=== PATIENT | female | born 1955 | race Caucasian/White ===

== ENCOUNTER 2017-10-25 08:38 | Day surgery (SDC) | payer OTHER ==
[~2017-10-25] VITALS: Ht 177.8 cm; Wt 96.6 kg
[~2017-10-25 08:38] MED LIST: BIOTIN; BUPIVACAINE/PF 0.5% ONE; CEFAZOLIN 1,000 MG ONE; CEPH-368 PO; CITA10TA4 PO; DEXAMETHASONE 4 MG/ML, 1ML ONE; DICY10CA3 PO; EPINEPHRINE 1 MG/ML, 1ML ONE; ESCI10TA10 PO; GLUCOSAMINE; HORMONE; LACT1CAP37 PO; MULT-230 PO; MULT-326 PO; ONDANSETRON 2MG/ML, 2ML ONE; PROPOFOL 10 MG/ML, 20ML ONE; SUCCINYLCHOLINE 20 MG/ML, 10ML ONE
[2017-10-25] MEDS ORDERED: LACTATED RINGERS 1,000 ML IV SCH (09:26)
[2017-10-25 09:27] VITALS: BP 124/82
[2017-10-25] MEDS ORDERED: RANI150T23 PO (09:29)
[2017-10-25] MEDS ORDERED: MIDAZOLAM 1 MG/ML, 2ML ONE (09:32)
[2017-10-25] MEDS ORDERED: FENTANYL PF 250 MCG/5ML ONE (09:32)
[2017-10-25] MEDS ORDERED: GABAPENTIN 300 MG CAPSULE ONE ×3 (09:45→09:48)
[2017-10-25] MEDS ORDERED: ACETAMINOPHEN 500 MG TABLET ONE ×2 (09:45→09:48)
[2017-10-25] MEDS ORDERED: ONDANSETRON 2MG/ML, 2ML ONE (10:00)
[2017-10-25] MEDS ORDERED: PROPOFOL 10 MG/ML, 20ML ONE (10:00)
[2017-10-25] MEDS ORDERED: ROCURONIUM 10 MG/ML,10ML ONE (10:00)
[2017-10-25] MEDS ORDERED: GLYCOPYRROLATE 0.2MG/1ML, 5ML ONE (10:00)
[2017-10-25] MEDS ORDERED: NEOSTIGMINE 1 MG/ML, 10ML ONE (10:00)
[2017-10-25] MEDS ORDERED: CEFAZOLIN 1,000 MG ONE (10:00)
[2017-10-25] MEDS ORDERED: DEXAMETHASONE 4 MG/ML, 1ML ONE (10:00)
[2017-10-25] MEDS ORDERED: hydrALAzine 20 MG/ML, 1ML IV PRN (10:30)
[2017-10-25] MEDS ORDERED: HYDROmorphone 1 MG/ML, 1ML IV PRN (10:30)
[2017-10-25] MEDS ORDERED: MEPERIDINE/PF 25MG/0.5ML IVPush PRN (10:30)
[2017-10-25] MEDS ORDERED: PROMETHAZINE 25 MG/ML, 1ML IV PRN (10:30)
[2017-10-25] MEDS ORDERED: FENTANYL PF 100 MCG/2ML IV PRN (10:30)
[2017-10-25] MEDS ORDERED: OXYcodone 5 MG/5 ML ORAL.SOL UDC PO PRN (10:30)
[2017-10-25] MEDS ORDERED: LABETALOL 5MG/ML, 20ML IV PRN (10:30)
[2017-10-25] MEDS ORDERED: LORazepam 2 MG/ML, 1ML IVPush PRN (10:30)
[2017-10-25] MEDS ORDERED: ALBUTEROL SULFATE 2.5 MG/3 ML NPPB PRN (10:30)
== END 2017-10-25 13:05 | disposition home or self-care (01) ==
LOC: OUT 08:38
PROVIDERS: ATTEND Surgery
DX: K80.10 Calculus of gallbladder with chronic cholecystitis without obstruction (principal); F41.9 Anxiety disorder, unspecified; F17.200 Nicotine dependence, unspecified, uncomplicated; Z90.710 Acquired absence of both cervix and uterus; Z98.890 Other specified postprocedural states; Z79.899 Other long term (current) drug therapy
CPT/HCPCS: 47562; 88304; 93005; C1760; J0171; J0330; J0690; J1100; J2250; J2405; J2704; J2710; J3010; J3490; J7120